=== PATIENT | female | born 1960 | race Caucasian/White ===

== ENCOUNTER 2018-07-23 08:39 | Day surgery (SDC) | payer BC ==
[~2018-07-23 08:39] MED LIST: ACETAMINOPHEN 325 MG TAB PO; LIDOCAINE 3.5 % 1ML OPHTH TOPICAL GEL OU; MIDAZOLAM INJ 2 MG/2 ML VIAL (J2250) As Ordered; PHENYLEPHRINE HCL 10 % OPHTH. SOL 5ML OS; PROPARACAINE 0.5% OPHTH SOL 15ML XX
[2018-07-23] MEDS: TROPICAMIDE 1% OPHTH SOLN 2ML OS (10:23)
[2018-07-23] MEDS: CYCLOPENTOLATE 2% OPHTH SOLN 2ML BTL OS (10:23)
[2018-07-23] MEDS: OFLOXACIN 0.3 % (OCUFLOX) OPTH SOL 5ML OS (10:23)
[2018-07-23] MEDS: PHENYLEPHRINE 2.5% OPHTH SOL 2ML OS (10:23)
[2018-07-23] MEDS ORDERED: fentaNYL 100 MCG/2 ML INJECTION (J3010) As Ordered (10:49)
[2018-07-23] MEDS: POVIDONE-IODINE 5% OPHTH PREP SOL 30ML As Ordered (11:36)
[2018-07-23] MEDS: BALANCED SALT IRRIGATION SOLUTION 500ML BAG (FOR OR EYE MACHINE) As Ordered (11:40)
[2018-07-23] MEDS: LIDOCAINE 1% SDV 5 ML VIAL As Ordered (11:40)
[2018-07-23] MEDS: HEALON DUET (HEALON 10MG/ML 0.55ML & HEALON ENDOCOAT 30MG/ML 0.85ML) As Ordered (11:44)
[2018-07-23] MEDS: CEFUROXIME 1MG/0.1ML INTRACAMERAL INJ As Ordered (11:46)
[2018-07-23] MEDS ORDERED: AcetaZOLAMIDE 500 MG ER CAP As Ordered (12:21)
[2018-07-23] MEDS: AcetaZOLAMIDE 500 MG ER CAP PO (12:25)
[2018-07-23] MEDS: KETOROLAC 0.5% OPHTH SOLN XX (12:25)
[2018-07-23] MEDS ORDERED: TRIMETHOBENZAMIDE 300 MG CAP PO (12:30)
[2018-07-23] MEDS ORDERED: ONDANSETRON 4MG/2ML VIAL (J2405) IV (12:30)
== END 2018-07-23 12:40 | disposition home or self-care (01) ==
LOC: M SDC 08:39
DX: H25.12 Age-related nuclear cataract, left eye (principal); H52.202 Unspecified astigmatism, left eye; D64.9 Anemia, unspecified; F32.9 Major depressive disorder, single episode, unspecified; K21.9 Gastro-esophageal reflux disease without esophagitis; Z88.5 Allergy status to narcotic agent; Z79.899 Other long term (current) drug therapy; Z90.710 Acquired absence of both cervix and uterus; Z85.528 Personal history of other malignant neoplasm of kidney; Z98.84 Bariatric surgery status
CPT/HCPCS: 66984

== ENCOUNTER 2018-08-13 11:15 | Day surgery (SDC) | payer BC ==
[2018-08-13] MEDS: ACETYLCHOLINE OPHTH SOLN 1% 2ML (MIOCHOL-E) As Ordered (06:48)
[2018-08-13] MEDS: TETRACAINE 0.5% OPHTH SOLN 4ML As Ordered (10:59)
[~2018-08-13 11:15] MED LIST changes: -LIDOCAINE 3.5 % 1ML OPHTH TOPICAL GEL OU; -MIDAZOLAM INJ 2 MG/2 ML VIAL (J2250) As Ordered; +PHENYLEPHRINE HCL 10 % OPHTH. SOL 5ML OD; -PHENYLEPHRINE HCL 10 % OPHTH. SOL 5ML OS; +PROPARACAINE 0.5% OPHTH SOL 15ML OD; -PROPARACAINE 0.5% OPHTH SOL 15ML XX
[2018-08-13] MEDS: LIDOCAINE 3.5 % 1ML OPHTH TOPICAL GEL OU (11:51)
[2018-08-13] MEDS: PHENYLEPHRINE 2.5% OPHTH SOL 2ML OD (11:54)
[2018-08-13] MEDS: OFLOXACIN 0.3 % (OCUFLOX) OPTH SOL 5ML OD (11:54)
[2018-08-13] MEDS: CYCLOPENTOLATE 2% OPHTH SOLN 2ML BTL OD (11:54)
[2018-08-13] MEDS: TROPICAMIDE 1% OPHTH SOLN 2ML OD (11:54)
[2018-08-13] MEDS ORDERED: MIDAZOLAM INJ 2 MG/2 ML VIAL (J2250) As Ordered (12:49)
[2018-08-13] MEDS ORDERED: fentaNYL 100 MCG/2 ML INJECTION (J3010) As Ordered (12:49)
[2018-08-13] MEDS: CEFUROXIME 1MG/0.1ML INTRACAMERAL INJ As Ordered (13:12)
[2018-08-13] MEDS: LIDOCAINE 1% SDV 5 ML VIAL As Ordered (13:12)
[2018-08-13] MEDS: BALANCED SALT IRRIGATION SOLUTION 500ML BAG (FOR OR EYE MACHINE) As Ordered (13:12)
[2018-08-13] MEDS: HEALON DUET (HEALON 10MG/ML 0.55ML & HEALON ENDOCOAT 30MG/ML 0.85ML) As Ordered (13:12)
[2018-08-13] MEDS: POVIDONE-IODINE 5% OPHTH PREP SOL 30ML As Ordered (13:16)
[2018-08-13] MEDS ORDERED: TRIMETHOBENZAMIDE 300 MG CAP PO (13:45)
[2018-08-13] MEDS: KETOROLAC 0.5% OPHTH SOLN OD (13:45)
[2018-08-13] MEDS: AcetaZOLAMIDE 500 MG ER CAP PO (13:50)
== END 2018-08-13 14:15 | disposition home or self-care (01) ==
LOC: M SDC 11:15
DX: H25.11 Age-related nuclear cataract, right eye (principal); H52.201 Unspecified astigmatism, right eye; D64.9 Anemia, unspecified; F32.9 Major depressive disorder, single episode, unspecified; Z79.899 Other long term (current) drug therapy
CPT/HCPCS: 66984

== ENCOUNTER 2018-10-08 07:00 | Day surgery (SDC) | payer BC ==
[~2018-10-08 07:00] MED LIST changes: +CYCLOPENTOLATE 2% OPHTH SOLN 2ML BTL OS; +PHENYLEPHRINE 2.5% OPHTH SOL 2ML OS; -PHENYLEPHRINE HCL 10 % OPHTH. SOL 5ML OD; +PHENYLEPHRINE HCL 10 % OPHTH. SOL 5ML OS; -PROPARACAINE 0.5% OPHTH SOL 15ML OD; +TROPICAMIDE 1% OPHTH SOLN 2ML OS
[2018-10-08] MEDS: OFLOXACIN 0.3 % (OCUFLOX) OPTH SOL 5ML OS (07:00)
[2018-10-08] MEDS: LIDOCAINE 3.5 % 1ML OPHTH TOPICAL GEL OU (07:00)
[2018-10-08] MEDS ORDERED: PROPARACAINE 0.5% OPHTH SOL 15ML OS (07:01)
[2018-10-08] MEDS ORDERED: MIDAZOLAM INJ 2 MG/2 ML VIAL (J2250) As Ordered (07:11)
[2018-10-08] MEDS ORDERED: fentaNYL 100 MCG/2 ML INJECTION (J3010) As Ordered (07:12)
[2018-10-08] MEDS: POVIDONE-IODINE 5% OPHTH PREP SOL 30ML As Ordered (08:39)
[2018-10-08] MEDS: CEFUROXIME 1MG/0.1ML INTRACAMERAL INJ As Ordered (08:42)
[2018-10-08] MEDS: BALANCED SALT IRRIGATION SOLUTION 500ML BAG (FOR OR EYE MACHINE) As Ordered (08:42)
[2018-10-08] MEDS: LIDOCAINE 1% SDV 5 ML VIAL As Ordered (08:42)
[2018-10-08] MEDS: HEALON DUET PRO(HEALON 10MG/ML 0.55ML & HEALON ENDOCOAT 30MG/ML 0.85ML) As Ordered (08:42)
[2018-10-08] MEDS: AcetaZOLAMIDE 500 MG ER CAP PO (09:25)
[2018-10-08] MEDS ORDERED: TRIMETHOBENZAMIDE 300 MG CAP PO (09:30)
[2018-10-08] MEDS ORDERED: KETOROLAC 0.5% OPHTH SOLN OS (09:30)
== END 2018-10-08 09:30 | disposition home or self-care (01) ==
LOC: M SDC 07:00
DX: H59.022 Cataract (lens) fragments in eye following cataract surgery, left eye (principal); I10 Essential (primary) hypertension; E11.9 Type 2 diabetes mellitus without complications; K21.9 Gastro-esophageal reflux disease without esophagitis; D64.9 Anemia, unspecified; F32.9 Major depressive disorder, single episode, unspecified; R94.5 Abnormal results of liver function studies; E66.01 Morbid (severe) obesity due to excess calories; Z68.39 Body mass index [BMI] 39.0-39.9, adult; Z88.5 Allergy status to narcotic agent; Z79.899 Other long term (current) drug therapy; Z98.84 Bariatric surgery status; Z85.528 Personal history of other malignant neoplasm of kidney; Z90.710 Acquired absence of both cervix and uterus
CPT/HCPCS: 66840